=== PATIENT | male | born 1945 | race Caucasian/White ===

== ENCOUNTER 2017-03-07 18:11 | Inpatient (IN) | payer MEDICARE, BC ==
[2017-03-07] MEDS ORDERED: ceFAZolin 2 GM in SODIUM CHLORIDE 0.9% 100 ML IVPB STA (18:31)
[2017-03-07] MEDS ORDERED: DIPH,PERTUS(ACELL)TETVAC-LF 0.5 ML VIAL IM ONE (18:33)
--- NOTE | 2017-03-07 18:35 | ED ---
General Adult HPI - General Chief complaint: Extremity Injury, Lower Stated complaint: Leg Injury Time Seen by Provider: 03/07/17 18:20 Source: patient, EMS, RN notes reviewed Mode of arrival: EMS Limitations: no limitations - History of Present Illness Initial comments: 71-year-old male history hypertension and hypercholesterolemia presents with injury to the left thigh. Patient was cutting wood with his chainsaw, slipped hitting the anterior aspect of his left thigh. Patient was ambulatory. He denies any numbness or tingling distally 1. There is no other injury noted. He believes his tetanus status is up-to-date. He has minimal pain at this time. - Related Data Home Medications Medication Instructions Recorded Confirmed Aspirin EC [Ecotrin Low Dose] 162 mg PO DAILY 09/29/15 03/07/17 Simvastatin [Zocor] 20 mg PO HS 09/29/15 03/07/17 Vit A/Vit C/Vit E/Zinc/Copper 1 cap PO BID 09/29/15 03/07/17 [ICAPS SOFTGEL] amLODIPine [Norvasc] 5 mg PO HS 03/07/17 03/07/17 Allergies Allergy/AdvReac Type Severity Reaction Status Date / Time No Known Allergies Allergy Verified 03/07/17 18:54 Review of Systems ROS Statement: Those systems with pertinent positive or pertinent negative responses have been documented in the HPI. ROS Other: All systems not noted in ROS Statement are negative. Past Medical History Past Medical History: Coronary Artery Disease (CAD), GERD/Reflux, Hyperlipidemia , Hypertension, Myocardial Infarction ([place]), Osteoarthritis (OA), Renal Disease Additional Past Medical History / Comment(s): born with one kidney Last Myocardial Infarction Date:: 2003 History of Any Multi-Drug Resistant Organisms: None Reported Past Surgical History: Adenoidectomy, Heart Catheterization With Stent, Hernia Repair, Tonsillectomy Additional Past Surgical History / Comment(s): hernia repain x 2; sinus surgery , colonoscopy. Past Anesthesia/Blood Transfusion Reactions: No Reported Reaction Date of Last Stent Placement:: 2003 Past Psychological History: No Psychological Hx Reported Smoking Status: Never smoker Past Alcohol Use History: None Reported Past Drug Use History: None Reported - Past Family History Mother Family Medical History: Coronary Artery Disease (CAD), Diabetes Mellitus ( Mother at age 77 from diabetes and CAD) Father Family Medical History: Coronary Artery Disease (CAD) (Father at age of 89 from a CAD also had osteoarthritis and adult onset macular degeneration per) Brother(s) Family Medical History: Skin Disorder (Patient has one brother who is alive and has psoriasis) Sister(s) Family Medical History: No Reported History (Patient has 3 sisters no major medical problems.) Daughter(s) Family Medical History: No Reported History (Patient has one daughter with no major medical problems.) Son(s) Family Medical History: No Reported History (Patient has one son no major medical problems) Additional Family Medical History / Comment(s): Patient has 4 step kids 2 boys and 2 girls from his second General Exam Limitations: no limitations General appearance: alert, in no apparent distress Head exam: Present: atraumatic, normocephalic Eye exam: Present: normal appearance, PERRL ENT exam: Present: normal exam Neck exam: Present: normal inspection. Absent: tenderness, meningismus Respiratory exam: Present: normal lung sounds bilaterally. Absent: respiratory distress Cardiovascular Exam: Present: regular rate, normal rhythm GI/Abdominal exam: Present: soft. Absent: distended, tenderness Extremities exam: Present: other (Left lower extremity, large irregular laceration to the left anterior mid thigh. There is underlying fat and muscle involvement. No arterial bleed. Minimal venous oozing. Wound is dirty. Popliteal pulse intact, DP and PT pulses 2+. No sensory deficit.) Back exam: Present: normal inspection Neurological exam: Present: alert, oriented X3 Psychiatric exam: Present: normal affect, normal mood Skin exam: Present: warm, dry, cyanosis. Absent: diaphoretic Course Vital Signs 03/07/17 18:21 Temperature 99.9 F H Pulse Rate 86 Respiratory 18 Rate Blood Pressure 143/81 O2 Sat by Pulse 97 Oximetry - Reevaluation(s) Reevaluation #1: 03/07/17 18:35 Case is discussed with trauma surgery on-call Dr. Puckett, she will evaluate the patient for possible OR washout and repair. Medical Decision Making - Medical Decision Making 71-year-old male presents with change signs reveal left thigh. There is significant contamination and muscle involvement. No major vasculature injury. Patient is evaluated by trauma surgery and will be taken to the OR for washout and repair. X-rays obtained shows no acute bony abnormality. Laboratory studies include CBC and CMP are unremarkable. Diagnosis: Left thigh laceration - Lab Data Result diagrams: 03/07/17 18:40 03/07/17 18:40 Lab Results 03/07/17 03/07/17 Range/Units 18:40 18:40 WBC 7.0 (3.8-10.6) k/uL RBC 5.03 (4.30-5.90) m/uL Hgb 15.7 (13.0-17.5) gm/dL Hct 45.3 (39.0-53.0) % MCV 90.0 (80.0-100.0) fL MCH 31.1 (25.0-35.0) pg MCHC 34.6 (31.0-37.0) g/dL RDW 12.7 (11.5-15.5) % Plt Count 222 (150-450) k/uL Neutrophils % 72 % Lymphocytes % 17 % Monocytes % 6 % Eosinophils % 2 % Basophils % 1 % Neutrophils # 5.0 (1.3-7.7) k/uL Lymphocytes # 1.2 (1.0-4.8) k/uL Monocytes # 0.4 (0-1.0) k/uL Eosinophils # 0.1 (0-0.7) k/uL Basophils # 0.1 (0-0.2) k/uL Sodium 144 (137-145) mmol/L Potassium 4.1 (3.5-5.1) mmol/L Chloride 112 H (98-107) mmol/L Carbon Dioxide 21 L (22-30) mmol/L Anion Gap 11 mmol/L BUN 26 H (9-20) mg/dL Creatinine 1.46 H (0.66-1.25) mg/dL Est GFR (MDRD) Af Amer 58 (>60 ml/min/1.73 sqM) Est GFR (MDRD) Non-Af 48 (>60 ml/min/1.73 sqM) Glucose 92 (74-99) mg/dL Calcium 9.6 (8.4-10.2) mg/dL Total Bilirubin 0.4 (0.2-1.3) mg/dL AST 41 (17-59) U/L ALT 37 (21-72) U/L Alkaline Phosphatase 83 (38-126) U/L Total Protein 6.8 (6.3-8.2) g/dL Albumin 4.3 (3.5-5.0) g/dL Disposition Clinical Impression: Laceration Disposition: ADMITTED IP TO THIS HOSP Condition: Stable Referrals: Paxton Lund MD [Primary Care Provider] - 1-2 days Decision to Admit Reason: Admit from EC Decision Date: 03/07/17 Decision Time: 19:29
--- NOTE | 2017-03-07 18:52 | XR ---
EXAMINATION TYPE: XR Femur LT 1 View DATE OF EXAM: 03/07/2017 COMPARISON: NONE HISTORY: Left lower extremity pain TECHNIQUE: Single portable view of the left femur anterior posterior was obtained. FINDINGS: No discrete femoral fracture as seen on the single view. Mild degenerative changes of the f emoral acetabular joint and moderate of the medial compartment of the knee are appreciated. No discre te soft tissue swelling. No radiopaque foreign body. IMPRESSION: No left femoral fracture identified on this single view.
[2017-03-07 18:59] LABS: Basophils # (A) 0.1 k/uL (0-0.2); Basophils % (A) 1 %; CH 31.5; CHCM 35.1; Eosinophils # (A) 0.1 k/uL (0-0.7); Eosinophils % (A) 2 %; HCT 45.3 % (39.0-53.0); HDW 2.56; HGB 15.7 gm/dL (13.0-17.5); Luc # (Auto) 0.12; Luc % (Auto) 2; Lymphocytes # (A) 1.2 k/uL (1.0-4.8); Lymphocytes % (A) 17 %; MCH 31.1 pg (25.0-35.0); MCHC 34.6 g/dL (31.0-37.0); Mean Platelet Volume 7.1; Monocytes # (A) 0.4 k/uL (0-1.0); Monocytes % (A) 6 %; Neutrophils % (A) 72 %; RBC 5.03 m/uL (4.30-5.90); RDW 12.7 % (11.5-15.5); WBC (Perox) 7.14
[2017-03-07 19:06] LABS: Calcium 9.6 mg/dL (8.4-10.2); Potassium 4.1 mmol/L (3.5-5.1); Total Bilirubin 0.4 mg/dL (0.2-1.3); Total Protein 6.8 g/dL (6.3-8.2)
[2017-03-07 19:09] LABS: INR 1.1 (<1.2); Prothrombin Time 11.2 sec (9.0-12.0)
[2017-03-07 19:32] LABS: Partial Thromboplastin Time 21.2 sec (22.0-30.0)
--- NOTE | 2017-03-07 19:41 | P.GSHP ---
History of Present Illness H&P Date: 03/07/17 Chief Complaint: Injury to L thigh The patient is a 71-year-old man who was using a chain saw on a tree. It ended up hitting his left thigh and he was brought into the emergency department. He does not have any pain in the calf or foot. No numbness or tingling. - Review of Systems All systems: negative - Cardiovascular Cardiovascular: Denies chest pain, Denies shortness of breath - Respiratory Respiratory: Denies cough - Musculoskeletal Musculoskeletal: Reports as per HPI Past Medical History Past Medical History: Coronary Artery Disease (CAD), GERD/Reflux, Hyperlipidemia , Hypertension, Myocardial Infarction ([place]), Osteoarthritis (OA), Renal Disease Additional Past Medical History / Comment(s): born with one kidney Last Myocardial Infarction Date:: 2003 History of Any Multi-Drug Resistant Organisms: None Reported Past Surgical History: Adenoidectomy, Heart Catheterization With Stent, Hernia Repair, Tonsillectomy Additional Past Surgical History / Comment(s): hernia repain x 2; sinus surgery , colonoscopy. Past Anesthesia/Blood Transfusion Reactions: No Reported Reaction Date of Last Stent Placement:: 2003 Past Psychological History: No Psychological Hx Reported Smoking Status: Never smoker Past Alcohol Use History: None Reported Past Drug Use History: None Reported - Past Family History Mother Family Medical History: Coronary Artery Disease (CAD), Diabetes Mellitus ( Mother at age 77 from diabetes and CAD) Father Family Medical History: Coronary Artery Disease (CAD) (Father at age of 89 from a CAD also had osteoarthritis and adult onset macular degeneration per) Brother(s) Family Medical History: Skin Disorder (Patient has one brother who is alive and has psoriasis) Sister(s) Family Medical History: No Reported History (Patient has 3 sisters no major medical problems.) Daughter(s) Family Medical History: No Reported History (Patient has one daughter with no major medical problems.) Son(s) Family Medical History: No Reported History (Patient has one son no major medical problems) Additional Family Medical History / Comment(s): Patient has 4 step kids 2 boys and 2 girls from his second Medications and Allergies Home Medications Medication Instructions Recorded Confirmed Type Aspirin EC [Ecotrin Low Dose] 162 mg PO DAILY 09/29/15 03/07/17 History Simvastatin [Zocor] 20 mg PO HS 09/29/15 03/07/17 History Vit A/Vit C/Vit E/Zinc/Copper 1 cap PO BID 09/29/15 03/07/17 History [ICAPS SOFTGEL] amLODIPine [Norvasc] 5 mg PO HS 03/07/17 03/07/17 History Allergies Allergy/AdvReac Type Severity Reaction Status Date / Time No Known Allergies Allergy Verified 03/07/17 18:54 Surgical - Exam Osteopathic Statement: *. No significant issues noted on an osteopathic structural exam other than those noted in the History and Physical/Consult. Vital Signs Temp Pulse Resp BP Pulse Ox 99.9 F H 86 18 143/81 97 03/07/17 18:21 03/07/17 18:21 03/07/17 18:21 03/07/17 18:21 03/07/17 18:21 - General well developed, well nourished, no distress - Eyes normal ocular movement - ENT normal mucosa - Neck trachea midline - Respiratory normal respiratory effort, clear to auscultation - Integumentary There is an approximately 15 cm laceration in the left anterior thigh. This goes through the skin, subcutaneous tissue, anterior thigh musculature. There is a small nonbleeding blood vessel noted. - Neurologic Light touch sensation intact distal to the laceration no disoriented, no combative - Musculoskeletal Visible muscle and fascia left thigh - Psychiatric oriented to time, oriented to person, oriented to place, speech is normal, memory intact Results - Labs 03/07/17 18:40 03/07/17 18:40 Abnormal Lab Results - Last 24 Hours (Table) 03/07/17 03/07/17 Range/Units 18:40 18:40 APTT 21.2 L (22.0-30.0) sec Chloride 112 H (98-107) mmol/L Carbon Dioxide 21 L (22-30) mmol/L BUN 26 H (9-20) mg/dL Creatinine 1.46 H (0.66-1.25) mg/dL Diabetes panel 03/07/17 Range/Units 18:40 Sodium 144 (137-145) mmol/L Potassium 4.1 (3.5-5.1) mmol/L Chloride 112 H (98-107) mmol/L Carbon Dioxide 21 L (22-30) mmol/L BUN 26 H (9-20) mg/dL Creatinine 1.46 H (0.66-1.25) mg/dL Glucose 92 (74-99) mg/dL Calcium 9.6 (8.4-10.2) mg/dL AST 41 (17-59) U/L ALT 37 (21-72) U/L Alkaline Phosphatase 83 (38-126) U/L Total Protein 6.8 (6.3-8.2) g/dL Albumin 4.3 (3.5-5.0) g/dL Calcium panel 03/07/17 Range/Units 18:40 Calcium 9.6 (8.4-10.2) mg/dL Albumin 4.3 (3.5-5.0) g/dL Pituitary panel 03/07/17 Range/Units 18:40 Sodium 144 (137-145) mmol/L Potassium 4.1 (3.5-5.1) mmol/L Chloride 112 H (98-107) mmol/L Carbon Dioxide 21 L (22-30) mmol/L BUN 26 H (9-20) mg/dL Creatinine 1.46 H (0.66-1.25) mg/dL Glucose 92 (74-99) mg/dL Calcium 9.6 (8.4-10.2) mg/dL Adrenal panel 03/07/17 Range/Units 18:40 Sodium 144 (137-145) mmol/L Potassium 4.1 (3.5-5.1) mmol/L Chloride 112 H (98-107) mmol/L Carbon Dioxide 21 L (22-30) mmol/L BUN 26 H (9-20) mg/dL Creatinine 1.46 H (0.66-1.25) mg/dL Glucose 92 (74-99) mg/dL Calcium 9.6 (8.4-10.2) mg/dL Total Bilirubin 0.4 (0.2-1.3) mg/dL AST 41 (17-59) U/L ALT 37 (21-72) U/L Alkaline Phosphatase 83 (38-126) U/L Total Protein 6.8 (6.3-8.2) g/dL Albumin 4.3 (3.5-5.0) g/dL - Imaging Additional studies: No femur fracture was reported Assessment and Plan (1) Soft tissue injury of left thigh Status: Acute (2) Laceration Status: Acute (3) Coronary artery disease Status: Acute (4) Hypertension Status: Acute Plan: Due to the complex nature of the injury with potential foreign body from Wood particles and/or oil, I recommend he go to the operating room for a washout. I may loosely close the wound. Place a drain. He'll need to be on broad spectrum antibiotics. He is up-to-date on his tetanus. The procedure, risk and complications were discussed. I do that for him today.
[2017-03-07] MEDS ORDERED: PROPOFOL 10 MG/ML 20 ML VIAL IV ONE (21:06)
[2017-03-07] MEDS ORDERED: SODIUM CHLORIDE 0.9% 1,000 ML IV ONE (21:06)
[2017-03-07] MEDS ORDERED: ONDANSETRON 4 MG/2 ML VIAL ONE (21:06)
[2017-03-07] MEDS ORDERED: fentaNYL (PF) 50 MCG/ML 2 ML AMP ONE (21:06)
[2017-03-07] MEDS ORDERED: MIDAZOLAM 2 MG/2 ML VIAL ONE (21:06)
[2017-03-07] MEDS ORDERED: ceFAZolin 1,000 MG in SODIUM CHLORIDE 0.9% 1,000 ML IRRIGATION ONE (21:27)
[2017-03-07] MEDS ORDERED: NALOXONE 0.4 MG/ML 1 ML VIAL IV PRN (21:58)
[2017-03-07] MEDS ORDERED: ACETAMINOPHEN TAB 325 MG TAB PO PRN (21:58)
[2017-03-07] MEDS ORDERED: HYDROcodone/APAP 5-325MG 1 EACH TAB PO PRN ×2 (21:58→22:05)
[2017-03-07] MEDS ORDERED: ONDANSETRON 4 MG/2 ML VIAL IVP PRN (21:58)
--- NOTE | 2017-03-07 21:58 | P.OP ---
Date of Procedure: 03/07/17 Preoperative Diagnosis: Soft tissue injury left anterior thigh, complex contaminated wound Postoperative Diagnosis: Same Procedure(s) Performed: Washout and excisional debridement left anterior thigh with placement of drain and partial closure of fascia Anesthesia: JOCE Surgeon: Angelina Puckett Estimated Blood Loss (ml): 25 Pathology: none sent Condition: stable Disposition: PACU Indications for Procedure: The patient is a 8-year-old man who was injured with a chainsaw to his left anterior thigh. There was devitalized skin and subcutaneous tissue with visible muscle which had been transected Description of Procedure: The patient's taken the operative suite where he is prepped and draped in the usual sterile manner under a general endotracheal anesthetic. The skin, subcutaneous tissue, muscle were then thoroughly irrigated and explored. Foreign material was irrigated and removed as encountered. There was devitalized skin and subcutaneous tissue that was sharply excised. There was a significant disruption of the vastus intermedius portion of the quadriceps. Part of the inter muscular tendon was disrupted. I could find good ends proximally and distally. These were brought together with 0 Vicryl sutures. A [place] drain was then allowed to lay in the disrupted muscle fibers. The fascia anteriorly was then loosely closed with 0 Vicryl suture. Subcutaneous tissue was again irrigated. The skin was very loosely closed with 3-0 nylon. A dressing was applied. He tolerated the procedure without difficulty and was taken recovery room in satisfactory condition. According to or personnel all counts were correct.
[2017-03-08 00:16] VITALS: BMI 27.4
[2017-03-08] MEDS: ceFAZolin 2 GM in SODIUM CHLORIDE 0.9% 100 ML IVPB SCH ×4 (01:16→23:10)
[2017-03-08] MEDS: D5-0.45% NACL WITH KCL 20MEQ/L 1,000 ML IV SCH ×3 (06:53→21:37)
[2017-03-08 07:35] LABS: Basophils % (A) 0 %; CH 30.9; CHCM 34.2; Eosinophils % (A) 0 %; HCT 44.1 % (39.0-53.0); HDW 2.44; HGB 15.2 gm/dL (13.0-17.5); Luc # (Auto) 0.13; Luc % (Auto) 2; Lymphocytes # (A) 1.1 k/uL (1.0-4.8); Lymphocytes % (A) 12 %; MCH 31.4 pg (25.0-35.0); MCHC 34.5 g/dL (31.0-37.0); MCV 90.9 fL (80.0-100.0); Monocytes # (A) 0.7 k/uL (0-1.0); Monocytes % (A) 8 %; Neutrophils % (A) 78 %; RBC 4.85 m/uL (4.30-5.90); RDW 12.7 % (11.5-15.5); WBC (Perox) 9.52
[2017-03-08] MEDS: FAMOTIDINE 20 MG TAB PO SCH (08:25)
[2017-03-08] MEDS ORDERED: FAMOTIDINE 20 MG TAB PO SCH (09:00)
--- NOTE | 2017-03-08 11:56 | P.PN ---
Subjective Principal diagnosis: Complex laceration left anterior thigh The patient is seen postop. He's having minimal pain. Nursing did replace the dressing as it slid off. No calf pain or foot swelling Objective - Vital Signs Vital signs: Vital Signs Temp 97.7 F 03/08/17 07:44 Pulse 77 03/08/17 07:44 Resp 16 03/08/17 07:44 BP 133/72 03/08/17 07:44 Pulse Ox 94 L 03/08/17 07:44 Intake & Output 03/07/17 03/08/17 03/08/17 18:59 06:59 18:59 Intake Total 1521 Output Total 1010 Balance 511 Weight 77.111 kg 77.111 kg Intake: IV 501 Intake, IV Titration 500 Amount D5-0.45% NaCl with KCl 300 20Meq/l 1,000 ml @ 50 mls /hr IV .Q20H [facility] Rx#: [id number] ceFAZolin 2 gm In Sodium 200 Chloride 0.9% 100 ml @ 100 mls/hr IVPB ONCE STA Rx#:[id number] Oral 520 Output: Urine 1000 Estimated Blood Loss 10 Other: Voiding Method Urinal Urinal # Voids 1 - Constitutional General appearance: Present: cooperative, no acute distress - Musculoskeletal Musculoskeletal Comment(s): The dressing is intact with no significant drainage. He is able to move his toes and foot with no difficulty. No significant foot or calf swelling. Negative Homans. - Labs CBC & Chem 7: 03/08/17 06:21 03/07/17 18:40 Labs: Abnormal Lab Results - Last 24 Hours (Table) 03/07/17 03/07/17 Range/Units 18:40 18:40 APTT 21.2 L (22.0-30.0) sec Chloride 112 H (98-107) mmol/L Carbon Dioxide 21 L (22-30) mmol/L BUN 26 H (9-20) mg/dL Creatinine 1.46 H (0.66-1.25) mg/dL Assessment and Plan (1) Soft tissue injury of left thigh Status: Acute (2) Laceration Status: Acute (3) Coronary artery disease Status: Acute (4) Hypertension Status: Acute Plan: I'll change the dressing in the morning. He's going to be seen by physical therapy. We'll put him in a knee immobilizer. He'll need to maintain the leg straight for 2 weeks then start gentle stretching at home. If he has any significant weakness or stiffness after 6 weeks we'll send him to physical therapy.
[2017-03-09 06:49] LABS: CH 30.9; CHCM 34.2; HCT 45.2 % (39.0-53.0); HDW 2.48; HGB 15.3 gm/dL (13.0-17.5); MCH 30.7 pg (25.0-35.0); MCHC 33.9 g/dL (31.0-37.0); MCV 90.6 fL (80.0-100.0); Mean Platelet Volume 6.8; RDW 12.7 % (11.5-15.5)
[2017-03-09 06:57] LABS: Anion Gap 9 mmol/L; Blood Urea Nitrogen 18 mg/dL (9-20); Calcium 9.2 mg/dL (8.4-10.2); Carbon Dioxide 25 mmol/L (22-30); Chloride 105 mmol/L (98-107); Glucose 95 mg/dL (74-99); Non-African American GFR(MDRD) 58 (>60 ml/min/1.73 sqM); Potassium 4.4 mmol/L (3.5-5.1); Sodium 139 mmol/L (137-145)
[2017-03-09 07:40] VITALS: BP 118/84; PULSE 78; RESP 16; TEMP 97.8
[2017-03-09] MEDS: ceFAZolin 2 GM in SODIUM CHLORIDE 0.9% 100 ML IVPB SCH (09:56)
[2017-03-09] MEDS: FAMOTIDINE 20 MG TAB PO SCH (09:56)
[2017-03-09] MEDS ORDERED: NEOMYCIN-BACITRACIN-POLY OINT 14 GM TUBE TOPICAL STA (12:53)
--- NOTE | 2017-03-09 15:29 | P.DS ---
Providers Date of admission: 03/08/17 11:32 Expected date of discharge: 03/09/17 Attending physician: Angelina Puckett Primary care physician: Paxton Lund - Discharge Diagnosis(es) (1) Soft tissue injury of left thigh Status: Acute (2) Laceration Status: Acute (3) Coronary artery disease Status: Acute (4) Hypertension Status: Acute Hospital Course: The patient present to the ED with a large laceration of skin and muscle of the anterior thigh due to chain saw injury. He was admitted. Taken to the OR where he underwent debridement and partial closure of wound. He was given antibiotics. Was seen by PT for nonweight bearing and leg immobilizer. He was felt to be stable for discharge 03-09 with home health. Procedures: see op note Patient Condition at Discharge: Good Plan - Discharge Summary New Discharge Prescriptions: New Cephalexin [Keflex] 500 mg PO Q8HR #15 cap No Action Vit A/Vit C/Vit E/Zinc/Copper [ICAPS SOFTGEL] 1 cap PO BID Aspirin EC [Ecotrin Low Dose] 162 mg PO DAILY Simvastatin [Zocor] 20 mg PO HS amLODIPine [Norvasc] 5 mg PO HS Discharge Medication List Aspirin EC [Ecotrin Low Dose] 162 mg PO DAILY 09/29/15 [History] Simvastatin [Zocor] 20 mg PO HS 09/29/15 [History] Vit A/Vit C/Vit E/Zinc/Copper [ICAPS SOFTGEL] 1 cap PO BID 09/29/15 [History] amLODIPine [Norvasc] 5 mg PO HS 03/07/17 [History] Cephalexin [Keflex] 500 mg PO Q8HR #15 cap 03/09/17 [Rx] Follow up Appointment(s)/Referral(s): [facility], [NON-STAFF] - 1 Week Angelina Puckett DO [Doctor of Osteopathic Medicine] - 03/16/17 9:45 am Paxton Lund MD [Primary Care Provider] - 03/10/17 3:00 pm Patient Instructions/Handouts: Laceration (DC) Activity/Diet/Wound Care/Special Instructions: Home nursing to change dressing daily. wash with normal saline. Pat Dry. Triple antibiotic ointment to the laceration. Cover with Adaptic or another non -adherent dressing. Bulky absorbent dressing. Use either Yanick wrap or coban to hold dressing in place. Use the immobilizer until instructed otherwise (about 2 weeks). Nonweightbearing Discharge Disposition: HOME WITH HOME HEALTH SERVICES
[2017-03-09] MEDS ORDERED: FAMOTIDINE 20 MG TAB PO SCH (21:00)
== END 2017-03-09 14:20 | disposition home health service (06) | DRG 464 ==
LOC: EC 18:11 → 3SUR 19:30 → OBSVTOIN 03-08 11:32
PROVIDERS: ADMIT Surgery; ATTEND Surgery
PROC: 0JQM0ZZ Repair Left Upper Leg Subcutaneous Tissue and Fascia, Open Approach (ICD-10-PCS; 2017-03-07)
PROC: 0LQM0ZZ Repair Left Upper Leg Tendon, Open Approach (ICD-10-PCS; 2017-03-07)
PROC: 3E0234Z Introduction of Serum, Toxoid and Vaccine into Muscle, Percutaneous Approach (ICD-10-PCS; 2017-03-07)
PROC: 0JBM0ZZ Excision of Left Upper Leg Subcutaneous Tissue and Fascia, Open Approach (ICD-10-PCS; principal; 2017-03-07 20:28)
DX: S76.922A Laceration of unspecified muscles, fascia and tendons at thigh level, left thigh, initial encounter (principal); Q60.0 Renal agenesis, unilateral; I10 Essential (primary) hypertension; I25.2 Old myocardial infarction; S71.112A Laceration without foreign body, left thigh, initial encounter; I25.10 Atherosclerotic heart disease of native coronary artery without angina pectoris; E78.00 Pure hypercholesterolemia, unspecified; M19.90 Unspecified osteoarthritis, unspecified site; K21.9 Gastro-esophageal reflux disease without esophagitis; Z79.899 Other long term (current) drug therapy; Z86.79 Personal history of other diseases of the circulatory system; Z95.5 Presence of coronary angioplasty implant and graft; Z87.448 Personal history of other diseases of urinary system; Z82.49 Family history of ischemic heart disease and other diseases of the circulatory system; Z83.3 Family history of diabetes mellitus; Z79.82 Long term (current) use of aspirin; Z23 Encounter for immunization; W29.3XXA Contact with powered garden and outdoor hand tools and machinery, initial encounter
CPT/HCPCS: 36415; 80048; 80053; 85025; 85027; 85610; 85730; 86850; 86900; 86901; 90471; 90715; 96365; 99285

== ENCOUNTER → 2017-03-19 | Outpatient (CLI) | payer MEDICARE, BC ==
--- NOTE | 2017-03-19 11:19 | PN ---
PROGRESS NOTE A 71-year-old gentleman who has been followed in the Sleep Center for treatment of obstructive sleep apnea-hypopnea syndrome. The patient continued to use his CPAP equipment successfully every night without any significant problems related to mask, humidification or pressure. No snoring with the machine. [place] Sleepiness Scale is 8. I checked patient's CPAP unit, CPAP pressure 7 cm of water, usage is 30/30 nights for more than 4 hours. Average usage is 7.1 hour. Leak is up to 10 L/min which is acceptable range. Apnea-hypopnea index for the last month 4.7, which is acceptable. Patient increased his weight on about 10 pounds since visit 1 year ago. MEDICATIONS: Simvastatin, Ecotrin, some eyedrops, Norvasc. PHYSICAL EXAM: Patient in no distress. BP 143/68, HR 86, RR 16, height 5, 6, weight 174, BMI 28.0, temperature 98.1, O2 saturation at room air 96%. OROPHARYNX: Low position of soft palate. HEENT: PERRLA, EOMI, evaluation of oropharynx showed tongue protrudes midline. Neck Supple, no JVD. Thyroid is not palpable. LUNGS Clear to percussion and to auscultation. Good air exchange. No wheezing or rhonchi. HEART S1, S2 regular. No murmurs, gallops, or rubs. ABDOMEN Soft and nontender. Bowel sounds are present. No organomegaly appreciated. EXTREMITIES No clubbing or cyanosis. SUPERVISOR ROAD ADMINISTRATOR Awake, alert, and oriented X3. Cranial nerves 2 to 7 intact. There is no fasciculation or atrophy. noted. No focal deficits observed. IMPRESSION: 1. Obstructive sleep apnea-hypopnea syndrome. The patient continued to use his CPAP equipment 100% of the time more than 4 hours per night. 2. Hypertension. 3. Hyperlipidemia. 4. Patient has 1 kidney. 5. Status post tonsillectomy. 6. Status post sinus surgery. 7. Status post UPPP. 8. History of macular degeneration. PLAN: 1. Continue treatment with CPAP every night for the whole night. 2. I will continue to renew prescription for CPAP supplies including nasal pillows mask, the patient has Talbert FX tube filters. 3. Losing weight. 4. No driving if feeling sleepiness. 5. Sleep hygiene with regular time in bed for at least 8 hours. 6. Followup visit in 1 year or earlier if patient has any problems. Thank you very much for allowing me to participate in the management of your patient. Sincerely, Arie Galvan MD, PhD, FAASM Diplomat of [place] [employer] [place] [employer] [facility] [place] MMYOVANIL / KEERTHI: [phone] /
== END | disposition home or self-care (01) ==
LOC: SLEEP 10:02
PROVIDERS: ATTEND Internal Medicine
DX: G47.33 Obstructive sleep apnea (adult) (pediatric) (principal); I10 Essential (primary) hypertension; E78.5 Hyperlipidemia, unspecified; Z86.69 Personal history of other diseases of the nervous system and sense organs; Z90.89 Acquired absence of other organs; Z98.890 Other specified postprocedural states

== ENCOUNTER → 2018-03-18 | Outpatient (CLI) | payer MEDICARE, BC ==
--- NOTE | 2018-03-18 11:12 | SFUN ---
SLEEP CENTER FOLLOW UP NOTE DATE OF SERVICE: 03/18/2018 This 72-year-old gentleman has been followed in sleep center for treatment of obstructive sleep apnea-hypopnea syndrome. The patient successfully continued to use CPAP equipment every night for the whole night without significant problems related to mask fitting, pressure humidification. He is getting his CPAP supplies in time. No sleepiness during the day. [place] Sleepiness Scale is 4. I checked CPAP unit. CPAP pressure 7 cm of water. Usage is 100% of the time. Average of 7 hours. Leak 8 L/minute, which is acceptable. Apnea-hypopnea index 7.1, which is slightly higher than during the last visit when it was 4.7. The patient increased his weight of 10 pounds for the last 2 years comparing with the time when he had CPAP titration. MEDICATIONS: Simvastatin, Ecotrin, Norvasc eyedrops. PHYSICAL EXAMINATION: During physical exam, patient in no distress. VITAL SIGNS: BP 118/80, HR 78, RR 16, height 5 feet 5 inches, weight 174.0, and body mass index 28.9, temperature 97.1, oxygen saturation room air 95%. HEENT: PERRLA, EOMI. Oropharynx low position of soft palate. NECK: Supple, no JVD. Thyroid is not palpable. LUNGS: Clear to percussion and to auscultation. Good air exchange. No wheezing or rhonchi. HEART: S1, S2 regular. No murmurs, gallops, or rubs. ABDOMEN: Soft and nontender. Bowel sounds are present. No organomegaly appreciated. EXTREMITIES: No clubbing or cyanosis. REHABILITATION PROGRAM COORDINATOR: Awake, alert, and oriented X3. Cranial nerves 2 to 7 intact. There is no fasciculation or atrophy. noted. No focal deficits observed. IMPRESSION: 1. Obstructive sleep apnea-hypopnea syndrome. Patient demonstrated 100% compliance with treatment benefitting from treatment. 2. Hypertension. 3. Hyperlipidemia. 4. Patient has one kidney. 5. Status post tonsillectomy. 6. Status post sinus surgery. 7. Status post uvulopalatopharyngoplasty. 8. History of macular degeneration. PLAN: 1. Patient will continue to use CPAP equipment every night for the whole night. 2. Watching and losing weight. 3. Sleep hygiene with regular time in bed for at least 7-1/2 hours. 4. I will increase pressure to 8 cm of water. 5. Prescription for all necessary CPAP supplies including mask, tube, filters will be maintained. Thank you very much for allowing me to participate in management of your patient. Sincerely, Arie Galvan MD, PhD, FAASM Diplomat of [place] [employer] [employer] [facility] [place] MMODL / BRENNAN: [id number] /
== END | disposition home or self-care (01) ==
LOC: SLEEP 10:08
PROVIDERS: ATTEND Internal Medicine
DX: G47.33 Obstructive sleep apnea (adult) (pediatric) (principal); I10 Essential (primary) hypertension; E78.5 Hyperlipidemia, unspecified; Z90.89 Acquired absence of other organs; Z90.5 Acquired absence of kidney; Z98.890 Other specified postprocedural states; Z79.899 Other long term (current) drug therapy; Z86.69 Personal history of other diseases of the nervous system and sense organs

== ENCOUNTER → 2019-03-24 | Outpatient (CLI) | payer MEDICARE ==
--- NOTE | 2019-03-24 11:47 | SFUN ---
SLEEP CENTER FOLLOW UP NOTE DATE OF SERVICE: 03/24/2019 This 73-year-old gentleman had been followed in the sleep center for treatment of obstructive sleep apnea-hypopnea syndrome. The patient continued to use his CPAP equipment every night for the whole night without significant problems related to mask fitting, pressure or humidification. [place] Sleepiness Scale today is 5. I checked CPAP unit. CPAP pressure is 8 cm of water. Usage is 30 out of 30 nights for more than 4 hours with average usage 6.8 hours per night. Leak is 18 L/minute, which is borderline. Apnea-hypopnea index was 2.3. It is absolutely normal and better than during the previous visit about one year ago when I slightly increased the pressure in the machine to 8 cm of water. Previously, it was 7 cm of water. MEDICATIONS: Simvastatin, Norvasc, Ecotrin, eyedrops. PHYSICAL EXAMINATION: During physical exam, patient in no distress. VITAL SIGNS: BP 136/80, HR 84, RR 16, height 5 feet 5-1/2 inches, weight 176 pounds, body mass index 28.8, temperature 96.9. HEENT: PERRLA, EOMI. Oropharynx low position of soft palate. Mallampati 4. NECK: Supple, no JVD. Thyroid is not palpable. LUNGS: Clear to percussion and to auscultation. Good air exchange. No wheezing or rhonchi. HEART: S1, S2 regular. No murmurs, gallops, or rubs. ABDOMEN: Soft and nontender. Bowel sounds are present. No organomegaly appreciated. EXTREMITIES: No clubbing or cyanosis. SYSTEMS ENGINEER: Awake, alert, and oriented X3. Cranial nerves 2 to 7 intact. There is no fasciculation or atrophy. noted. No focal deficits observed. IMPRESSION: 1. Obstructive sleep apnea-hypopnea syndrome. The patient demonstrated 100% compliance with treatment, benefitting from treatment. 2. Hyperlipidemia. 3. Hypertension. 4. Patient has one kidney. 5. Status post tonsillectomy. 6. Status post UPPP. 7. Status post sinus surgery. 8. History of macular degeneration. PLAN: 1. Patient will continue to use CPAP equipment every night for the whole night. 2. Sleep hygiene with regular time in bed for at least 7-1/2 or 8 hours. 3. No driving if feeling sleepiness. 4. I will maintain prescription for nasal pillows Talbert FX medium mask, tube, filters. 5. Follow-up appointment in one year or earlier if patient has any problems. Thank you very much for allowing me to participate in management of your patient. Sincerely, Arie Galvan MD, PhD, FAASM Diplomat of [place] [employer] [place] [employer] Multimedia Artist of [facility] [place] MMODL / IJN: [id number] /
== END | disposition home or self-care (01) ==
LOC: SLEEP 10:46
PROVIDERS: ATTEND Internal Medicine
DX: G47.33 Obstructive sleep apnea (adult) (pediatric) (principal); E78.5 Hyperlipidemia, unspecified; I10 Essential (primary) hypertension; Z90.5 Acquired absence of kidney; Z90.89 Acquired absence of other organs; Z98.890 Other specified postprocedural states; Z86.69 Personal history of other diseases of the nervous system and sense organs; Z99.89 Dependence on other enabling machines and devices; Z79.899 Other long term (current) drug therapy

== ENCOUNTER → 2019-05-04 | Outpatient (CLI) | payer MEDICARE ==
--- NOTE | 2019-05-04 16:24 | XR ---
EXAMINATION TYPE: XR chest 2V DATE OF EXAM: 05/04/2019 COMPARISON: NONE HISTORY: Pleural plaque, history of asbestos exposure TECHNIQUE: Frontal and lateral views of the chest are obtained. FINDINGS: There is no focal air space opacity, pleural effusion, or pneumothorax seen. The cardiac silhouette size is within normal limits. Aorta is dense and tortuous. There is spondylosis in the vis ualized spine. Suspect calcified pleural plaques are present on the left. The osseous structures are intact. IMPRESSION: Correlate for asbestos related disease.
== END | disposition home or self-care (01) ==
LOC: RADXRMAIN 16:01
PROVIDERS: ATTEND Internal Medicine Geriatric Medicine
DX: J92.9 Pleural plaque without asbestos (principal); R92.8 Other abnormal and inconclusive findings on diagnostic imaging of breast
CPT/HCPCS: 71046

== ENCOUNTER → 2020-04-12 | Outpatient (CLI) | payer MEDICARE ==
--- NOTE | 2020-04-12 17:38 | SFUN ---
SLEEP CENTER FOLLOW UP NOTE DATE OF SERVICE: 04/12/2020 This is a 74-year-old gentleman who has been followed in Sleep Center for treatment of obstructive sleep apnea-hypopnea syndrome. Patient continues to use his CPAP equipment every night for the whole night. No problems with the humidifier, mask fitting or pressure. [place] Sleepiness Scale today is 7. I checked the patient's CPAP unit. Usage is 30/30 nights for more than 4 hours. Average usage is 7 hours per night. Leak is L/minute, which is borderline. CPAP pressure is 8 cm of water. Apnea-hypopnea index is 4.2, which is in normal range. Medications are simvastatin 20 mg once a day, amlodipine 5 mg once a day, aspirin 81 mg a day and I-Caps twice a day. PHYSICAL EXAMINATION: GENERAL: A pleasant patient in no distress. VITAL SIGNS: BP 138/85, HR 74, RR 16, height 5 feet 6 inches, weight 178, BMI 28.7, temperature 97.7, oxygen saturation at room air 97%. HEENT: PERRLA, EOMI. Evaluation of oropharynx showed tongue protrudes midline. Low position of soft palate. Mallampati IV. NECK: Supple. No JVD. Thyroid is not palpable. LUNGS: Clear to percussion and to auscultation. Good air exchange. No wheezing or rhonchi. HEART: S1, S2 regular. No murmurs, gallops or rubs. ABDOMEN: Soft, nontender. No organomegaly. Bowel sounds are heard in all four quadrants. EXTREMITIES: No clubbing or cyanosis. CORRECTIONAL CAPTAIN: Awake, alert, and oriented X3. Cranial nerves 2 to 7 intact. There is no fasciculation or atrophy. noted. No focal deficits observed. IMPRESSION: 1. Obstructive sleep apnea-hypopnea syndrome. The patient demonstrated great compliance with treatment, benefitting from treatment. 2. Hypertension. 3. Hyperlipidemia. 4. Patient has one kidney. 5. Status post tonsillectomy. 6. Status post UPPP. 7. Status post sinus surgery. 8. History of macular degeneration. PLAN: 1. Patient will continue to use PAP equipment every night for the whole night. 2. Sleep hygiene with regular time in bed for at least 7-1/2 to 8 hours. 3. Precautions related to driving. No driving if feeling sleepiness. 4. I will maintain all necessary prescription for PAP supplies including mask, tube, filters. 5. Watching weight. 6. No driving if feeling sleepiness. 7. Follow-up visit in 6 months or earlier if patient has any problems. Thank you very much for allowing me to participate in the management of your patient. Sincerely, Arie Galvan MD, PhD, FAASM Diplomat of [place] [employer] Medicine Lead Nuclear Medicine Technologist of [facility] [place] MMODL / BRENNAN: [id number] /
== END | disposition home or self-care (01) ==
LOC: SLEEP 13:03
PROVIDERS: ATTEND Internal Medicine
DX: G47.33 Obstructive sleep apnea (adult) (pediatric) (principal); I10 Essential (primary) hypertension; Z98.890 Other specified postprocedural states; E78.5 Hyperlipidemia, unspecified; Z90.09 Acquired absence of other part of head and neck; Z87.39 Personal history of other diseases of the musculoskeletal system and connective tissue; Z79.899 Other long term (current) drug therapy; Z79.82 Long term (current) use of aspirin; Z99.89 Dependence on other enabling machines and devices

== ENCOUNTER → 2020-11-15 | Outpatient (CLI) | payer MEDICARE ==
--- NOTE | 2020-11-15 19:05 | SFUN ---
SLEEP CENTER FOLLOW UP NOTE DATE OF SERVICE: 11/15/2020 This 75-year-old gentleman has been followed in Sleep Center for treatment of obstructive sleep apnea-hypopnea syndrome. The patient continues to use his CPAP equipment every night for the whole night. He is getting his CPAP supplies. Needs to replace his mask. [place] Sleepiness Scale today is 8. I checked his CPAP unit. CPAP pressure is 8 cm of water. Usage is 30/30 nights with average usage 6.9 hours per night. Leak is 12 L/minute. Apnea-hypopnea index is 3.9, which is in normal range. MEDICATIONS: 1. Amlodipine 5 mg once a day. 2. Simvastatin 20 mg once a day. 3. Aspirin 81 mg once a day. PHYSICAL EXAMINATION: GENERAL: A pleasant patient in no distress. VITAL SIGNS: BP 124/86, HR 80, RR 16, height 5 feet 5-1/2 inches, weight 177.6 pounds, temperature 97.0, oxygen saturation at room air 95%. BMI 29.3. HEENT: PERRLA, EOMI. Evaluation of oropharynx showed tongue protrudes midline. Extremely low position of soft palate. Mallampati IV. NECK: Supple. No JVD. Thyroid is not palpable. LUNGS: Clear to percussion and to auscultation. Good air exchange. No wheezing or rhonchi. HEART: S1, S2 regular. No murmurs, gallops or rubs. ABDOMEN: Soft and nontender. Bowel sounds are present. No organomegaly appreciated. EXTREMITIES: No clubbing or cyanosis. SENIOR ANALYST: Awake, alert, and oriented X3. Cranial nerves 2 to 7 intact. There is no fasciculation or atrophy. noted. No focal deficits observed. IMPRESSION: 1. Obstructive sleep apnea-hypopnea syndrome. The patient demonstrated 100% compliance with treatment, benefitting from treatment. 2. Hypertension. 3. Hyperlipidemia. 4. Patient has one kidney. 5. Status post sinus surgery. 6. Status post tonsillectomy. 7. Status post UPPP. 8. History of macular degeneration. 9. History of rotator cuff problems in the past. PLAN: 1. Patient will continue to use PAP equipment every night for the whole night. 2. Sleep hygiene with regular time in bed for at least 7-1/2 to 8 hours. 3. Precautions related to driving. No driving if feeling sleepiness. 4. I will maintain all necessary prescription for PAP supplies including mask, tube, filters. 5. Watching weight. 6. Follow-up visit in 6 months or earlier if patient has any problems. Thank you very much for allowing me to participate in the management of your patient. Sincerely, Arie Galvan MD, PhD, FAASM Diplomat of [place] [employer] [employer] [place] [employer] Medicine Social Organization Professor of [facility] [place] MMODL / BRENNAN: [id number] /
== END ==
LOC: SLEEP 13:04
PROVIDERS: ATTEND Internal Medicine
DX: G47.33 Obstructive sleep apnea (adult) (pediatric) (principal); I10 Essential (primary) hypertension; E78.5 Hyperlipidemia, unspecified; Z90.5 Acquired absence of kidney; Z98.890 Other specified postprocedural states; Z90.89 Acquired absence of other organs; Z86.69 Personal history of other diseases of the nervous system and sense organs; Z87.39 Personal history of other diseases of the musculoskeletal system and connective tissue

== ENCOUNTER → 2021-03-20 | Outpatient (CLI) | payer MEDICARE ==
--- NOTE | 2021-03-20 19:50 | SFUN ---
SLEEP CENTER FOLLOW UP NOTE DATE OF SERVICE: 03/20/2021 This 75-year-old gentleman has been followed in Sleep Center for treatment of obstructive sleep apnea-hypopnea syndrome. The patient successfully continues to use his CPAP equipment every night for the whole night. [place] Sleepiness Scale today is 5, which is normal. I checked his CPAP unit. CPAP pressure is 8 cm of water. Usage is 30/30 nights, average usage 7 hours per night. Leak is 14 L/minute, which is borderline. Apnea- hypopnea index is 4.2, which is in normal range. MEDICATIONS: 1. Amlodipine 5 mg once a day. 2. Simvastatin 20 mg once a day. 3. Aspirin 81 mg once a day. 4. Some vitamins for the eyes. PHYSICAL EXAMINATION: GENERAL: Pleasant patient in no distress. VITAL SIGNS: BP 141/93, HR 72, RR 15, height 5 feet 6 inches, weight 180.2, body mass index 29.0, temperature 96.8, oxygen saturation at room air 96%. HEENT: PERRLA, EOMI, evaluation of oropharynx showed tongue protrudes midline. Extremely low position of soft palate; Mallampati IV. NECK: Supple, no JVD. Thyroid is not palpable. LUNGS: Clear to percussion and to auscultation. Good air exchange. No wheezing or rhonchi. HEART: S1, S2 regular. No murmurs, gallops, or rubs. ABDOMEN: Soft and nontender. Bowel sounds are present. No organomegaly appreciated. EXTREMITIES: No clubbing or cyanosis. DESK TOP PUBLISHER: Awake, alert, and oriented X3. Cranial nerves 2 to 7 intact. There is no fasciculation or atrophy. noted. No focal deficits observed. IMPRESSION: 1. Obstructive sleep apnea-hypopnea syndrome. Patient continues to use CPAP equipment every night, benefitting from treatment. 2. Hypertension. 3. Hyperlipidemia. 4. Patient has one kidney. 5. Status post sinus surgery. 6. Status post tonsillectomy. 7. Status post UPPP. 8. History of macular degeneration. 9. History of rotator cuff problems in the past. PLAN: 1. Patient will continue to use PAP equipment every night for the whole night. 2. Sleep hygiene with regular time in bed for at least 7-1/2 to 8 hours. 3. Precautions related to driving. No driving if feeling sleepiness. 4. I will maintain all necessary prescription for PAP supplies including mask, tube, filters. 5. Watching weight. 6. Follow-up visit in 6 months or earlier if patient has any problems. Thank you very much for allowing me to participate in the management of your patient. Sincerely, Arie Galvan MD, PhD, FAASM Diplomat of [place] [employer] Sleep Medicine Board of [place] [employer] of Internal Medicine Processing Specialist of [facility] [place] MMODL / BRENNAN: [id number] /
== END ==
LOC: SLEEP 10:57
PROVIDERS: ATTEND Internal Medicine
DX: G47.33 Obstructive sleep apnea (adult) (pediatric) (principal); I10 Essential (primary) hypertension; E78.5 Hyperlipidemia, unspecified; Z99.89 Dependence on other enabling machines and devices; Z98.890 Other specified postprocedural states; Z90.09 Acquired absence of other part of head and neck; Z86.69 Personal history of other diseases of the nervous system and sense organs; Z87.828 Personal history of other (healed) physical injury and trauma; Z79.899 Other long term (current) drug therapy

== ENCOUNTER → 2021-10-23 | Outpatient (CLI) | payer MEDICARE ==
--- NOTE | 2021-10-23 20:32 | SFUN ---
SLEEP CENTER FOLLOW UP NOTE DATE OF SERVICE: 10/23/2021 Mr. Joyce is a 76-year-old gentleman who has been followed in Sleep Center for treatment of obstructive sleep apnea-hypopnea syndrome. The patient continued to use his CPAP equipment most of the nights and is getting supplies on time. No snoring with CPAP. [place] Sleepiness Scale today is increased to 12. I checked his CPAP unit. Usage is 23/30 nights for more than 4 hours, average usage 6.7 hours per night. Leak is 12 L/minute, which is in normal range. Apnea-hypopnea index is 2.2, which is totally normal. CPAP pressure is 8 cm of water. MEDICATIONS: 1. Simvastatin 20 mg once a day. 2. Amlodipine 5 mg once a day. 3. Aspirin 81 mg once a day. PHYSICAL EXAMINATION: GENERAL: Pleasant patient in no distress. VITAL SIGNS: BP 137/71, HR 12, RR 16, weight 179 pounds, height 5 feet 6 inches, temperature 97.3, oxygen saturation at room air 98%. HEENT: PERRLA, EOMI, evaluation of oropharynx showed tongue protrudes midline. Extremely low position of soft palate; Mallampati IV. NECK: Supple, no JVD. Thyroid is not palpable. LUNGS: Clear to percussion and to auscultation. Good air exchange. No wheezing or rhonchi. HEART: S1, S2 regular. No murmurs, gallops, or rubs. ABDOMEN: Soft and nontender. Bowel sounds are present. No organomegaly appreciated. EXTREMITIES: No clubbing or cyanosis. ARCH SUPPORT TECHNICIAN: Awake, alert, and oriented X3. Cranial nerves 2 to 7 intact. There is no fasciculation or atrophy. noted. No focal deficits observed. IMPRESSION: 1. Obstructive sleep apnea-hypopnea syndrome. Patient demonstrated good compliance with treatment, benefitting from treatment. Normal respiration on CPAP. 2. Hypertension. 3. Hyperlipidemia. 4. Patient has one kidney. 5. Status post sinus surgery. 6. Status post tonsillectomy. 7. Status post uvulopalatopharyngoplasty. 8. History of macular degeneration. 9. History of rotator cuff problems in the past. 10.Coronary artery disease, status post stent insertion in 2003. 11.History of kidney stones documented in 2015. PLAN: 1. Patient will continue to use PAP equipment every night for the whole night. 2. Sleep hygiene with regular time in bed for at least 7-1/2 to 8 hours. 3. Precautions related to driving. No driving if feeling sleepiness. 4. I will maintain all necessary prescription for PAP supplies including mask, tube, filters. 5. Watching weight. 6. Follow-up visit in 6 months or earlier if patient has any problems. Thank you very much for allowing me to participate in the management of your patient. Sincerely, Arie Galvan MD, PhD, FAASM Diplomat of [place] [employer] Specialties Sleep Medicine Board of [place] Board of Internal Medicine Air Conditioning Equipment Mechanic of [facility] [place] MMODL / IJN: [id number] /
== END ==
LOC: SLEEP 09:56
PROVIDERS: ATTEND Internal Medicine
DX: G47.33 Obstructive sleep apnea (adult) (pediatric) (principal); Z99.89 Dependence on other enabling machines and devices; I10 Essential (primary) hypertension; E78.5 Hyperlipidemia, unspecified; Z98.890 Other specified postprocedural states; Z90.09 Acquired absence of other part of head and neck; I25.10 Atherosclerotic heart disease of native coronary artery without angina pectoris; Z95.5 Presence of coronary angioplasty implant and graft; Z86.69 Personal history of other diseases of the nervous system and sense organs; Z87.442 Personal history of urinary calculi

== ENCOUNTER → 2021-11-29 | Outpatient (CLI) | payer MEDICARE ==
--- NOTE | 2021-11-29 12:03 | CA ---
Transthoracic Echo Report Name: Malachi Joyce Age: 76 Gender: M : 1945 Exam Date: 11/29/2021 11:32 Exam Location: [facility] Ht (in): 66 Wt (lb): 171 Ordering Physician: Paxton Lund MD Attending/Referring Phys: Key Punch Teacher Rani Rosales RDCS Procedure CPT: Indications: I25.10 ATHSCL HEART DISEASE OF [place] CORONARY ART Cardiac Hx: Technical Quality: Fair Contrast 1: Total Dose (mL): Contrast 2: Total Dose (mL): MEASUREMENTS (Male / Female) Normal Values 2D ECHO LV Diastolic Diameter PLAX 4.3 cm 4.2 - 5.9 / 3.9 - 5.3 cm LV Systolic Diameter PLAX 3.0 cm IVS Diastolic Thickness 1.3 cm 0.6 - 1.0 / 0.6 - 0.9 cm LVPW Diastolic Thickness 1.3 cm 0.6 - 1.0 / 0.6 - 0.9 cm LV Relative Wall Thickness 0.6 RV Internal Dim ED PLAX 2.8 cm LA Systolic Diameter LX 3.1 cm 3.0 - 4.0 / 2.7 - 3.8 cm M-MODE Aortic Root Diameter MM 3.4 cm MV E Point Septal Separation 0.9 cm AV Cusp Separation MM 1.7 cm DOPPLER AV Peak Velocity 122.8 cm/s AV Peak Gradient 6.0 mmHg MV Area PHT 2.2 cm??? Mitral E Point Velocity 69.6 cm/s Mitral A Point Velocity 110.1 cm/s Mitral E to A Ratio 0.6 MV Deceleration Time 337.3 ms MV E' Velocity 4.5 cm/s Mitral E to MV E' Ratio 15.5 FINDINGS Left Ventricle Left ventricular ejection fraction is estimated at 55-60 %. Left ventricular cavity size normal. Mild concentric left ventricular hypertrophy. Right Ventricle Normal right ventricular size and function. Unable to estimate the right ventricular systolic pressure. Right Atrium Normal right atrial size. Left Atrium Normal left atrial size. No evidence for an atrial septal defect. Mitral Valve Structurally normal mitral valve. No mitral stenosis, regurgitation or prolapse. Mitral annular calcification. Aortic Valve Trileaflet aortic valve. No aortic valve stenosis or regurgitation. Focal thickening of the aortic valve cusps. Tricuspid Valve Structurally normal tricuspid valve. No tricuspid stenosis, regurgitation or prolapse. Pulmonic Valve Structurally normal pulmonic valve. Pericardium Normal pericardium. Aorta Normal size aortic root and proximal ascending aorta. CONCLUSIONS 1. Normal left ventricular size with preserved LV function and mild concentric hypertrophy. #2. Mitral valve calcification and mild thickening of the aortic valve Previewed by: Dr. Jorge A Zuleta MD (Electronically Signed) Final Date: 29 November 2021 12:02
== END | disposition home or self-care (01) ==
LOC: RADECHMAIN 11:21
PROVIDERS: ATTEND Internal Medicine Geriatric Medicine
DX: I08.0 Rheumatic disorders of both mitral and aortic valves (principal)
CPT/HCPCS: 93306

== ENCOUNTER → 2021-12-18 | Outpatient (CLI) | payer MEDICARE ==
--- NOTE | 2021-12-18 12:14 | CA ---
Exercise Stress Test Report Name: Malachi Joyce Exam Date: 12/18/2021 09:45 Exam Location: [facility] Ht (in): 66 Wt (lb): 167 BSA: 1.85 Ordering Phys: Mariluz Lund MD Referring Phys: MARILUZ LUND,, Technologist: BARBY,, Age: 76 Gender: M : 1945 Procedure CPT: Indications: I25.10 ATHSCL HEART DISEASE OF [place] CORONARY ART ICD-10 Codes: Patient History: HIGH BP, HIGH CHOLESTEROL, FAMILY HISTORY, NE, CATH Medications: Meds past 24 hrs: Pretest Chest Pain: STRESS TEST Armando Protocol Exercise Duration (min:sec): 09:[address] Depressions (mm): Angina Score: Campa Score: Resting HR (bpm): 65 Peak HR (bpm): 139 Resting BP (mmHg): 154 / 91 Peak BP (mmHg): 192 / 76 MPHR: 145 Target HR: 123 % MPHR: 96 METS: 11.8 Total Dose: Peak Dose: Atropine: Double Product: 66613 BP Response: Stress Termination: Reached target heart rate Stress Symptoms: No symptoms Stress Summary: ECG ANALYSIS Resting ECG: Normal sinus rhythm normal axis with poor R-wave progression Stress ECG: Negative stress test by EKG criteria CONCLUSIONS Excellent exercise tolerance Negative stress test by EKG criteria Cardiolite portion of the stress test will be reported separately Dr. Stanislaw Arthur MD (Electronically Signed) Final Date: 18 December 2021 12:13
--- NOTE | 2021-12-18 22:47 | NM ---
EXAMINATION TYPE: NM stress cardiolite complete DATE OF EXAM: 12/18/2021 COMPARISON: NONE HISTORY: Atherosclerotic heart disease. History of hypertension, hypercholesterolemia, and prior hear t attack with angioplasty. TECHNIQUE: After the intravenous administration of 9.7 mCi Tc 99m Sestamibi - Rest images obtained 5 5 minutes post injection. The patient exercised using a AVELINA protocol and 1 minute prior to peak e xercise was injected with 25.8 mCi Tc 99m Sestamibi - Stress images obtained 15 minutes post injectio n. FINDINGS: Targeted heart rate was achieved during performance of the study. Review of stress and rest SPECT zenia ges demonstrates poor uptake in the septal wall on stress and rest images suspicious for old infarct. No definitive reversible ischemia. Gated analysis shows overall estimated left ventricular ejection fraction of 65 %. 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 No reversible ischemia violeta ntified.
== END ==
LOC: RADNMMAIN 07:47
PROVIDERS: ATTEND Internal Medicine Geriatric Medicine
DX: I25.10 Atherosclerotic heart disease of native coronary artery without angina pectoris (principal); I10 Essential (primary) hypertension
CPT/HCPCS: 93017; 78452; A9500

== ENCOUNTER → 2022-10-23 | Outpatient (CLI) | payer MEDICARE ==
--- NOTE | 2022-10-23 10:52 | P.PN ---
Subjective DATE: 10/23/2022 FOLLOW UP VISIT. Patient with obstructive sleep apnea hypopnea syndrome return to sleep center for follow-up visit. Information from previous visit have been reviewed. Patient is using PAP equipment every night for the whole night, getting PAP supplies in time. The patient does not have significant problems with the mask, PAP unit and humidification. [place] sleepiness scale is 9, which is borderline. I checked information from PAP unit. PAP unit pressure 8 cm H2O. Usage is 100 % for more then 4 hours, average 6.6 hours per night. Leak is 22 l/m, which is in acceptable range. Apnea Hypopnea Index is 4.1, which is normal. MEDICATIONS:1. Amlodipine 5 mg once a day 2. Simvastatin 20 mg once a day 3. Aspirin 81 mg once a day During physical exam: GENERAL: A pleasant patient without any distress. VITAL SIGNS: BP 153/74, HR 71, RR 16 , weight 182.2, temperature 97.1, oxygen saturation at room air 94 % . HEENT: PERRLA, EOMI.low position of soft palate, Mallapati 4 . NECK: Supple. No JVD. LUNGS: Clear to percussion and to auscultation. Good air exchange. No wheezing or rhonchi. HEART: S1, S2 regular. ABDOMEN: Soft and nontender.[] EXTREMITIES: No clubbing or cyanosis. REHABILITATION COORDINATOR: Awake, alert, and oriented x3. No focal deficit. Impressions: 1. Obstructive sleep apnea-hypopnea syndrome. Patient demonstrated great compliance with treatment, benefiting from treatment. 2. Hypertension. 3. Hyperlipidemia. 4. Patient has one kidney. 5. Coronary artery disease, status post stent insertion. 6. Status post tonsillectomy and UPPP. 7. Status post sinus surgery. 8. History of macular degeneration. 9. History of nephrolithiasis. Plan: 1. Continue using PAP equipment every night for the whole night. 2. To change air filter at least 1-2 times per month. 3. PAP unit should stay lower then position of the head. 4. Advised patient to remove all remaining water from humidifier canister daily and make it dry after each usage. Refill canister with fresh distilled water before each usage. 5. Sleep hygiene with regular time in bed for at least 8 hours. 6. Precautions related to driving. No driving if feel any sleepiness. 7. I will maintain prescription for PAP supplies including mask, tube, filters. 8. Follow up visit in 6 months or earlier if patient has any problems. 9. Watching weight. Thank you very much for allowing me to participate in the management of your patient. Arie Galvan MD, PhD, FAASM. Diplomat of [place] [employer] Medicine, Sleep Medicine Board by [place] [employer] Internal Medicine Palliative Care Physician of [facility] [place]
== END ==
LOC: SLEEP 09:51
PROVIDERS: ATTEND Internal Medicine
DX: G47.33 Obstructive sleep apnea (adult) (pediatric) (principal); E78.5 Hyperlipidemia, unspecified; I10 Essential (primary) hypertension; I25.10 Atherosclerotic heart disease of native coronary artery without angina pectoris; Z79.899 Other long term (current) drug therapy; Z87.442 Personal history of urinary calculi; Z95.5 Presence of coronary angioplasty implant and graft; Z98.890 Other specified postprocedural states; Z99.89 Dependence on other enabling machines and devices; Z79.82 Long term (current) use of aspirin
CPT/HCPCS: 99212

== ENCOUNTER → 2023-04-09 | Outpatient (CLI) | payer MEDICARE ==
--- NOTE | 2023-04-09 12:29 | P.PN ---
Subjective DATE: 04/09/2023 FOLLOW UP VISIT. Patient with obstructive sleep apnea hypopnea syndrome return to sleep center for follow-up visit. Information from previous visit have been reviewed. Patient is using PAP equipment every night for the whole night, getting PAP supplies in time. The patient does not have significant problems with the mask, PAP unit and humidification. [place] sleepiness scale is 8, which is normal. I checked information from PAP unit. PAP unit pressure 8 cm H2O. Usage is 100 % for more then 4 hours, average 6.9 hours per night. Leak is 16 l/m, which is in acceptable range. Apnea Hypopnea Index is 4.9, which is normal. MEDICATIONS:1. Amlodipine 20 mg once a day 2. Simvastatin 5 mg once a day 3. Aspirin 81 mg once a day During physical exam: GENERAL: A pleasant patient without any distress. VITAL SIGNS: BP 160/92, HR 64, RR 16, weight 176.2, temperature 97.5, oxygen saturation at room air 97 % . HEENT: PERRLA, EOMI.low position of soft palate, Mallapati 4 . NECK: Supple. No JVD. LUNGS: Clear to percussion and to auscultation. Good air exchange. No wheezing or rhonchi. HEART: S1, S2 regular. ABDOMEN: Soft and nontender. EXTREMITIES: No clubbing or cyanosis. PRINTING FILM STRIPPER: Awake, alert, and oriented x3. No focal deficit. Impressions: 1. Obstructive sleep apnea-hypopnea syndrome. Patient demonstrated great compliance with treatment, benefiting from treatment. 2. Hypertension. 3. Hyperlipidemia. 4. Coronary artery disease, status post stent insertion. 5. Patient has one kidney. 6. Status post tonsillectomy and UPPP. 7. History of kidney stones. 8. History of macular degeneration. 9. Status post sinus surgery. 10. Status post leg surgery in 2017. Plan: 1. Continue using PAP equipment every night for the whole night. 2. To change air filter at least 1-2 times per month. 3. PAP unit should stay lower then position of the head. 4. Advised patient to remove all remaining water from humidifier canister daily and make it dry after each usage. Refill canister with fresh distilled water before each usage. 5. Sleep hygiene with regular time in bed for at least 8 hours. 6. Precautions related to driving. No driving if feel any sleepiness. 7. I will maintain prescription for PAP supplies including mask, tube, filters. 8. Watching weight. 9. Follow up visit in 6 months or earlier if patient has any problems. Thank you very much for allowing me to participate in the management of your p atient. Arie Galvan MD, PhD, FAASM. Diplomat of [place] [employer] Medicine, Sleep Medicine Board by [place] [employer] Medicine Gyroscopic Instrument Tester of [facility] [place]
== END ==
LOC: SLEEP 11:21
PROVIDERS: ATTEND Internal Medicine
DX: G47.33 Obstructive sleep apnea (adult) (pediatric) (principal); I10 Essential (primary) hypertension; E78.5 Hyperlipidemia, unspecified; I25.10 Atherosclerotic heart disease of native coronary artery without angina pectoris; H35.30 Unspecified macular degeneration; Z79.899 Other long term (current) drug therapy; Z87.442 Personal history of urinary calculi; Z95.5 Presence of coronary angioplasty implant and graft; Z98.890 Other specified postprocedural states; Z99.89 Dependence on other enabling machines and devices; Z90.5 Acquired absence of kidney; Z90.89 Acquired absence of other organs; Z79.82 Long term (current) use of aspirin
CPT/HCPCS: 99212

== ENCOUNTER → 2023-10-29 | Outpatient (CLI) | payer MEDICARE ==
--- NOTE | 2023-10-29 16:57 | XR ---
EXAMINATION TYPE: XR lumbar spine 2 or 3V DATE OF EXAM: 10/29/2023 1:42 PM CLINICAL INDICATION:Male, 78 years old with history of M48.07 spinal stenosis; [facility] COMPARISON: 10/09/2015. TECHNIQUE: XR lumbar spine 2 or 3V - Frontal, lateral and coned in L5-S1 lateral views of the spine. FINDINGS: There is wedging of the T11 vertebral body which is indeterminate. There is approximately 2 5% height loss anteriorly. Findings may have been similar on 09/29/2015. There is normal alignment of t he lumbar vertebral bodies. Mild scattered disc space narrowing. Multilevel marginal osteophyte forma tion throughout the visualized spine. There is facet joint arthropathy throughout the spine. Scattere d at least mild neural foraminal stenosis. I discussed the arterial vasculature. IMPRESSION: 1. Similar wedging of the T11 vertebral body correlate with pain for any new acute compression fractu re at this level. 2. Moderate multilevel disc degeneration.
== END | disposition home or self-care (01) ==
LOC: RADXRMAIN 12:56
PROVIDERS: ATTEND Internal Medicine Geriatric Medicine
DX: M51.36 Other intervertebral disc degeneration, lumbar region (principal); M48.07 Spinal stenosis, lumbosacral region; M48.54XA Collapsed vertebra, not elsewhere classified, thoracic region, initial encounter for fracture
CPT/HCPCS: 72100

== ENCOUNTER → 2023-11-10 | Outpatient (CLI) | payer MEDICARE ==
--- NOTE | 2023-11-12 08:42 | MR ---
EXAMINATION TYPE: MR lumbar spine wo/w con DATE OF EXAM: 11/10/2023 8:55 PM CLINICAL INDICATION:Male, 78 years old with history of M48.07 SPINAL STENOSIS, LUMBOSACRAL REGION; PH H, Low back pain and numbness into both legs x4 months COMPARISON: 10/29/2023 TECHNIQUE: Multi planar, multi sequence imaging was performed utilizing: T1-weighted, T2-weighted, a nd turbo inversion recovery imaging of the lumbar spine. IV Contrast: 8 cc Gadavist. (None if empty) FINDINGS: Alignment: The lumbar vertebral bodies have preserved heights and alignment. Cord: The conus medullaris and the distal spinal cord appear unremarkable with regards to their signa l intensity and morphology. No abnormal postcontrast enhancement. Bones/Discs: Multilevel disc degeneration changes with osteophyte formation, disc space narrowing, Sc hmorl's nodes, and facet joint arthropathy. No abnormal inversion recovery signal to suggest bony philippe ma. Intervertebral disc signal is maintained. No abnormal postcontrast enhancement. T12-L1: Disc bulge and facet joint arthropathy result in mild spinal canal and moderate to severe joaquín ateral neural foraminal stenosis. L1-L2: Left central/subarticular Disc extrusion with superior migration up to 16 mm. This results in mild spinal canal stenosis close approximation to forming nerves series 601 image 23. Facet joint art hropathy with moderate bilateral neural foraminal stenosis. L2-L3: Disc bulge and facet joint arthropathy result in mild spinal canal and moderate bilateral neur al foraminal stenosis. L3-L4: Disc bulge and facet joint arthropathy result in moderate to severe spinal canal and moderate bilateral neural foraminal stenosis. L4-L5: Disc bulge and facet joint arthropathy result in severe spinal canal and moderate to severe bi lateral neural foraminal stenosis. L5-S1: Disc bulge and facet joint arthropathy result in mild spinal canal and moderate bilateral neur al foraminal stenosis. No significant spinal canal or neural foraminal stenosis in the remainder of the visualized levels. Other findings: Similar dilated tubular structure representing remnant ureter as seen dating back to 09/29/2015 IMPRESSION: 1. Left central/subarticular disc extrusion with 16 mm inferior migration of disc material. This serjio sely approximate the forming nerves in the spinal canal. 2. Severe spinal canal stenosis at L4-L5 secondary to disc bulge and facet joint arthropathy. 3. Multilevel degeneration changes with osteophyte formation with neural foraminal stenosis worse at L4-L5 with moderate to severe bilateral. 4. No significant postcontrast enhancement.
== END | disposition home or self-care (01) ==
LOC: RADMRIMAIN 19:45
PROVIDERS: ATTEND Internal Medicine Geriatric Medicine
DX: M48.07 Spinal stenosis, lumbosacral region (principal); M51.26 Other intervertebral disc displacement, lumbar region; M48.061 Spinal stenosis, lumbar region without neurogenic claudication; M25.78 Osteophyte, vertebrae; M47.816 Spondylosis without myelopathy or radiculopathy, lumbar region; M99.73 Connective tissue and disc stenosis of intervertebral foramina of lumbar region; M51.36 Other intervertebral disc degeneration, lumbar region
CPT/HCPCS: 72158; A9585

== ENCOUNTER → 2023-11-12 | Outpatient (CLI) | payer MEDICARE ==
--- NOTE | 2023-11-12 11:31 | P.PROGSL ---
Subjective DATE: 11/12/2023 FOLLOW UP VISIT. Patient with obstructive sleep apnea hypopnea syndrome return to sleep center for follow-up visit. Information from previous visit have been reviewed. Patient is using PAP equipment every night for the whole night, getting PAP supplies in time. The patient does not have significant problems with the mask, PAP unit and humidification. [place] sleepiness scale is 8, which is normal. I checked information from PAP unit. PAP unit pressure 8 cm H2O. Usage is 100% for more then 4 hours, average 6.2 hours per night. Leak is 18 l/m, which is in acceptable range. Apnea Hypopnea Index is 2.0, which is normal. MEDICATIONS: Please see below During physical exam: GENERAL: A pleasant patient without any distress. VITAL SIGNS: Please see below, weight 175 pounds, BMI 29.1. HEENT: PERRLA, EOMI.low position of soft palate, Mallapati 4 . NECK: Supple. No JVD. LUNGS: Clear to percussion and to auscultation. Good air exchange. No wheezing or rhonchi. HEART: S1, S2 regular. ABDOMEN: Soft and nontender.[] EXTREMITIES: No clubbing or cyanosis. ASSISTANT PROPERTY MANAGER: Awake, alert, and oriented x3. No focal deficit. Impressions: 1. Obstructive sleep apnea-hypopnea syndrome. Patient demonstrated great compliance with treatment, benefiting from treatment. 2. Coronary artery disease, status post stent insertion. 3. Hypertension. 4. Hyperlipidemia. 5. Patient has 1 kidney. 6. Status post UPPP and tonsillectomy. 7. History of kidney stones. 8. History of macular degeneration. 9. Status post leg surgery in 2017. 10. Status post sinus surgery. Plan: 1. Continue using PAP equipment every night for the whole night. 2. To change air filter at least 1-2 times per month. 3. PAP unit should stay lower then position of the head. 4. Advised patient to remove all remaining water from humidifier canister daily and make it dry after each usage. Refill canister with fresh distilled water before each usage. 5. Sleep hygiene with regular time in bed for at least 8 hours. 6. Precautions related to driving. No driving if feel any sleepiness. 7. I will maintain prescription for PAP supplies including mask, tube, filters. 8. Follow up visit in 6 months or earlier if patient has any problems. 9. Watching weight. Thank you very much for allowing me to participate in the management of your patient. Arie Galvan MD, PhD, FAASM. Diplomat of [place] [employer], Sleep Medicine Board by [employer] [employer] [facility] [place] Objective Home Medications: Home Medications Medication Instructions Recorded Confirmed Type Aspirin EC [Ecotrin Low Dose] 162 mg PO DAILY 09/29/15 11/12/23 History Simvastatin [Zocor] 20 mg PO HS 09/29/15 11/12/23 History Vit A/Vit C/Vit E/Zinc/Copper 1 cap PO BID 09/29/15 11/12/23 History [ICAPS SOFTGEL] amLODIPine [Norvasc] 5 mg PO HS 03/07/17 11/12/23 History Cephalexin [Keflex] 500 mg PO Q8HR #15 cap 03/09/17 Rx Cinnamon Bark [Cinnamon] See Rx Instructions .ROUTE .COMPLEX 11/12/23 11/12/23 History
== END ==
LOC: 3 N SLEEP 11:01
PROVIDERS: ATTEND Internal Medicine
DX: G47.33 Obstructive sleep apnea (adult) (pediatric) (principal); I25.10 Atherosclerotic heart disease of native coronary artery without angina pectoris; I10 Essential (primary) hypertension; E78.5 Hyperlipidemia, unspecified; Z95.5 Presence of coronary angioplasty implant and graft; Z98.890 Other specified postprocedural states; Z87.442 Personal history of urinary calculi; Z86.69 Personal history of other diseases of the nervous system and sense organs; Z90.5 Acquired absence of kidney; Z99.89 Dependence on other enabling machines and devices; Z90.89 Acquired absence of other organs; Z79.899 Other long term (current) drug therapy
CPT/HCPCS: 99212

== ENCOUNTER → 2024-11-10 | Outpatient (CLI) | payer MEDICARE ==
[2024-11-10 11:04] VITALS: BP 137/91; PULSE 77; RESP 12; TEMP 97.7
--- NOTE | 2024-11-10 11:22 | P.PROGSL ---
Subjective DATE: 11/10/2024 FOLLOW UP VISIT. Patient with obstructive sleep apnea hypopnea syndrome return to sleep center for follow-up visit. Information from previous visit have been reviewed. Patient is using PAP equipment every night for the whole night, getting PAP supplies in time. The patient does not have significant problems with the mask, PAP unit and humidification. [place] sleepiness scale is slightly increased to 11. I checked information from PAP unit. PAP unit pressure 8 cm H2O. Usage is 100% for more then 4 hours, average 6.3 hours per night. Leak is 14 l/m, which is in acceptable range. Apnea Hypopnea Index is 2.0, which is normal. MEDICATIONS have been reviewed, please see below. During physical exam: GENERAL: A pleasant patient without any distress. VITAL SIGNS: Please see below, weight is 178 lbs. HEENT: PERRLA, EOMI.low position of soft palate, Mallapati 4 . NECK: Supple. No JVD. LUNGS: Clear to percussion and to auscultation. Good air exchange. No wheezing or rhonchi. HEART: S1, S2 regular. ABDOMEN: Soft and nontender.[] EXTREMITIES: No clubbing or cyanosis. WORM RAISER: Awake, alert, and oriented x3. No focal deficit. Impressions: 1. Obstructive sleep apnea-hypopnea syndrome. Patient demonstrated great compliance with treatment, benefiting from treatment. 2. Hypertension. 3. Coronary artery disease, status post stent insertion. 4. Hyperlipidemia. 5. Patient has 1 kidney. 6. History of kidney stones. 7. Status post UPPP and tonsillectomy. 8. History of macular degeneration. 9. Status post sinus surgery. 10. Status post leg surgery in 2017. Plan: 1. Continue using PAP equipment every night for the whole night. 2. Sleep hygiene with regular time in bed for at least 7.5-8 hours 3. PAP unit should stay lower then position of the head. 4. Advised patient to remove all remaining water from humidifier canister daily and make it dry after each usage. Refill canister with fresh distilled water before each usage. 5. Watching weight. 6. Precautions related to driving. No driving if feel any sleepiness. 7. I will maintain prescription for PAP supplies including mask, tube, filters. 8. Follow up visit in 8 months or earlier if patient has any problems. Thank you very much for allowing me to participate in the management of your patient. Arie Galvan MD, PhD, FAASM. Diplomat of [employer] [employer], Sleep Medicine Board by [employer] [facility] [place] Objective - Vital Signs Vital Signs: Vital Signs Temp 97.7 F 11/10/24 11:01 Pulse 77 11/10/24 11:01 Resp 12 11/10/24 11:01 BP 137/91 11/10/24 11:01 Pulse Ox 96 11/10/24 11:01 FiO2 Intake & Output 11/09/24 11/10/24 11/10/24 18:59 06:59 18:59 Weight 80.739 kg Home Medications: Home Medications Medication Instructions Recorded Confirmed Type Aspirin EC [Ecotrin Low Dose] 162 mg PO DAILY 09/29/15 11/12/23 History Simvastatin [Zocor] 20 mg PO HS 09/29/15 11/12/23 History Vit A/Vit C/Vit E/Zinc/Copper 1 cap PO BID 09/29/15 11/12/23 History [ICAPS SOFTGEL] amLODIPine [Norvasc] 5 mg PO HS 03/07/17 11/12/23 History Cephalexin [Keflex] 500 mg PO Q8HR #15 cap 03/09/17 Rx Cinnamon Bark [Cinnamon] See Rx Instructions .ROUTE .COMPLEX 11/12/23 11/12/23 History
== END ==
LOC: 3 N SLEEP 10:35
PROVIDERS: ATTEND Internal Medicine
DX: G47.33 Obstructive sleep apnea (adult) (pediatric) (principal); I10 Essential (primary) hypertension; I25.10 Atherosclerotic heart disease of native coronary artery without angina pectoris; E78.5 Hyperlipidemia, unspecified; H35.30 Unspecified macular degeneration; Z95.5 Presence of coronary angioplasty implant and graft; Z87.442 Personal history of urinary calculi; Z90.89 Acquired absence of other organs; Z98.890 Other specified postprocedural states; Z99.89 Dependence on other enabling machines and devices
CPT/HCPCS: 99212